=== PATIENT | female | born 1990 | race Two or more races ===

== ENCOUNTER 2017-01-18 11:59 | Inpatient (IN) | payer OTHER ==
[2017-01-18] MEDS: DEXTROSE 5%-LACTATED RINGERS 1,000 ML IV SCH ×2 (13:45→18:40)
[2017-01-18 13:48] VITALS: BMI 26.2
[2017-01-18] MEDS ORDERED: AMPICILLIN - 2 GM in SODIUM CHLORIDE 100 ML IVPB ONE (14:00)
[2017-01-18 15:27] LABS: BASOPHIL 0.4 % (0-2.0); EOSINOPHIL 0.3 % (0-4.5); MCH 30.7 pg (25.7-33.7); MEAN CELL VOLUME 85.5 fl (80-96); MEAN PLT VOLUME 10.6 fl (7.5-11.1); NEUTROPHILS 72.8 % (42.8-82.8); PLATELET COUNT 121 K/MM3 (134-434); RDW 12.9 % (11.6-15.6); WHITE BLOOD COUNT 8.9 K/mm3 (4.0-10.0)
[2017-01-18 15:43] LABS: ANION GAP 11 (8-16); CO2 22 mmol/L (21-32); CREATININE 0.5 mg/dL (0.55-1.02); GLUCOSE,RANDOM 123 mg/dL (74-106)
[2017-01-18 15:44] LABS: INR 1.03 (0.82-1.09); PROTHROMBIN TIME (PATIENT) 11.6 SEC (9.98-11.88)
[2017-01-18 15:47] LABS: ACTIVATED PTT 24.6 SECONDS (26.9-34.4)
[2017-01-18 15:56] LABS: HIV 1 & 2 AB NEGATIVE; HIV 1 AGp24 NEGATIVE
[2017-01-18] MEDS ORDERED: BUTORPHANOL TARTRATE 1 MG/ML VIAL IVPUSH PRN ×2 (16:05→17:06)
[2017-01-18] MEDS ORDERED: PROMETHAZINE HCL 25 MG/1 ML VIAL IVPUSH ONE (16:05)
--- NOTE | 2017-01-18 16:11 | PN ---
Progress Note (short form) - Note Progress Note: cx 5 cm, 100 vx -1 mi, fhr cat 1, irregular contraction , in labor, pitocin rba discussed , ,
[2017-01-18] MEDS ORDERED: OXYTOCIN 15 UNITS/ LR 250 ML 250 ML IVPB SCH (16:15)
[2017-01-18] MEDS: AMPICILLIN - 1 GM in SODIUM CHLORIDE 100 ML IVPB SCH ×2 (18:20→22:10)
--- NOTE | 2017-01-18 20:52 | PN ---
Progress Note (short form) - Note Progress Note: cx 7 cm 100 vx 0 mi, arom, small , scant clear flluid . fhr cat1, contraction q 3min
--- NOTE | 2017-01-18 20:58 | HP ---
Past Medical History - Primary Care Physician PCP:: Lan Flannery - Admission Chief Complaint: pregnacy 36.2 weeks , labor History of Present Illness: 26 yo f o 36.3 weeks, c/o pelvic pressure and pain . cx 4 cm 100 vx -1 mi , fhr cat 1, contraction q 3 to 4 min pain sacle 5 History Source: Patient Limitations to Obtaining History: No Limitations - Past Medical History ...: 2 ...Para: 0 ...Spon : 1 ...EDC by Sono: 02/12/17 Heme/Onc: Yes: Anemia - Past Surgical History Hx Myomectomy: No Hx Transabdominal Cerclage: No - Smoking History Smoking history: Never smoked Have you smoked in the past 12 months: No - Alcohol/Substance Use Hx Alcohol Use: No - Social History Usual Living Arrangement: Yes: With Spouse History of Recent Travel: No Home Medications - Allergies Allergies/Adverse Reactions: Allergies Allergy/AdvReac Type Severity Reaction Status Date / Time No Known Allergies Allergy Verified 01/18/17 12:51 - Home Medications Home Medications: Ambulatory Orders Aspirin [ASA -] 81 mg PO DAILY 01/18/17 Vitamins (Sjr) - 1 tab PO DAILY 01/18/17 Review of Systems - Review of Systems Constitutional: reports: No Symptoms Eyes: reports: No Symptoms HENT: reports: No Symptoms Neck: reports: No Symptoms Cardiovascular: reports: No Symptoms Respiratory: reports: No Symptoms Gastrointestinal: reports: Abdominal Pain Genitourinary: reports: No Symptoms Breasts: reports: No Symptoms Reported Musculoskeletal: reports: No Symptoms Integumentary: reports: No Symptoms Neurological: reports: No Symptoms Endocrine: reports: No Symptoms Hematology/Lymphatic: reports: No Symptoms Psychiatric: reports: No Symptoms Physical Exam - Maternity Vital Signs: Vital Signs Temperature 98.2 F 01/18/17 18:00 Pulse Rate 78 01/18/17 18:00 Respiratory Rate 18 01/18/17 18:00 Blood Pressure 106/51 01/18/17 18:00 O2 Sat by Pulse Oximetry (%) Constitutional: Yes: Well Nourished, No Distress, Calm Eyes: Yes: WNL, Conjunctiva Clear, EOM Intact HENT: Yes: WNL, Atraumatic, Normocephalic Neck: Yes: WNL, Supple, Trachea Midline Cardiovascular: Yes: WNL, Regular Rate and Rhythm Breast(s): Yes: WNL - Abdominal Exam/OB Fundal Height: 36 Number of Fetuses: Single Presentation: Vertex Contractions: Yes Regularity: Irregular Intensity: Mod/Strong Monitor Mode: External Heart Rate Location: [facility] Category: I Accelerations: Uniform Decelerations: None - Vaginal Exam/OB Vaginal Bleediing: Bloody Show Speculum Exam: No Dilatation (cm): 4 to 5 Effacement (%): 100 Amniotic Membrane Status: Intact Presentation: Vertex/Position Station: -2 - Physical Exam Musculoskeletal: Yes: WNL Extremities: Yes: WNL Edema: LLE: Trace, RLE: Trace Deep Tendon Reflex Grade: Normal +2 - Labs Lab Results: CBC, BMP 01/18/17 15:00 01/18/17 15:00 Hemorrhage Risk Assessment - Risk Factors Medium Risk Factors: Yes: None High Risk Factors: Yes: None Risk Score: 1 Risk Level: Medium Risk Problem List - Problems (1) with 36 completed weeks gestation Code(s): Z3A.36 - 36 WEEKS GESTATION OF (2) Labor established Code(s): GDV9084 - (3) Premature labor Code(s): O60.00 - LABOR WITHOUT DELIVERY, UNSPECIFIED TRIMESTER Qualifiers: labor trimester: third trimester Fetus number: single or unspecified fetus Assessment/Plan admit, heart monitoring, risks of prematurity discussed with patient and her , GBS not known , amp prophylaxis heart monitor
[2017-01-18] MEDS ORDERED: ELECTROLYTE-148 SOLN 1,000 ML IV SCH (21:00)
[2017-01-18] MEDS ORDERED: FENTANYL/BUPIVACAINE/NS/PF - PCEA - 50 ML DISP.SYRIN EP SCH (22:00)
--- NOTE | 2017-01-18 22:37 | PN ---
Progress Note (short form) - Note Progress Note: cx 9 cm, 100 0 station, vx mr, fhr cat 1, has epidural Problem List - Problems (1) with 36 completed weeks gestation Code(s): Z3A.36 - 36 WEEKS GESTATION OF (2) Labor established Code(s): [id number] - (3) Premature labor Code(s): O60.00 - LABOR WITHOUT DELIVERY, UNSPECIFIED TRIMESTER Qualifiers: labor trimester: third trimester Fetus number: single or unspecified fetus
[2017-01-19] MEDS: AMPICILLIN - 1 GM in SODIUM CHLORIDE 100 ML IVPB SCH (02:15)
[2017-01-19] MEDS: OXYTOCIN 20 UNITS in 0.9% NS 1,000 ML IV ONE ×2 (03:10→09:30)
[2017-01-19] MEDS ORDERED: BENZOCAINE 28 GM HEMORRHOIDAL OINTMENT TP PRN (03:27)
[2017-01-19] MEDS ORDERED: METHYLERGONOVINE MALEATE 0.2 MG/1 ML AMP IM PRN (03:27)
[2017-01-19] MEDS ORDERED: WITCH HAZEL 50% (TUCKS) 40 PAD/JAR PAD TP PRN (03:27)
[2017-01-19] MEDS ORDERED: oxyCODONE HCL 5 MG TABLET PO PRN (03:27)
[2017-01-19] MEDS ORDERED: BENZOCAINE 20% 57 GM BOTTLE TP PRN (03:27)
[2017-01-19] MEDS ORDERED: BISACODYL 10 MG SUPP.RECT RC PRN (03:27)
[2017-01-19] MEDS ORDERED: D5W-LR W/ 20 UNITS OXYTOCIN 1,000 ML IV SCH (03:30)
--- NOTE | 2017-01-19 03:30 | PN ---
Progress Note (short form) - Note Progress Note: 2 45 am, full 100 vx 3+ station, fhr cat 1, pushing with contraction Problem List - Problems (1) with 36 completed weeks gestation Code(s): Z3A.36 - 36 WEEKS GESTATION OF (2) Labor established Code(s): [id number] - (3) Premature labor Code(s): O60.00 - LABOR WITHOUT DELIVERY, UNSPECIFIED TRIMESTER Qualifiers: labor trimester: third trimester Fetus number: single or unspecified fetus
--- NOTE | 2017-01-19 03:35 | PN ---
Delivery - Delivery Vaginal Delivery: Spontaneous Type of Anesthesia: Epidural Episiotomy/Laceration: Periurethral Extnsion/lac (cx fully dilated , head on prinum . head deliverd , nasopharynx suctioned , ant and post shoulser with no difficulty , live baby boy 9/10 . placenta complete, rt paraurethral first degree laceration with one interupted suture of 2 o chromic, ebl 300 cc, no complication, DR Darnell balbuena attended delivery) Delivery, Single - [place] Feeding Plan Initial Plan: Exclusive throughout hospitalization
[2017-01-19 03:43] LABS: ARTERIAL BLOOD GAS BASE EXCESS -4.9 meq/l (-2-2); ARTERIAL BLOOD GAS HCO3 22.4 meq/L (22-26); ARTERIAL BLOOD GAS pH 7.26 (7.35-7.45)
[2017-01-19 03:46] LABS: PT. ON O2? NO
[2017-01-19 03:52] LABS: ARTERIAL BLD GAS O2 SATURATION 66.8 % (90-98.9); ARTERIAL BLOOD GAS PO2 34.9 mmHg (80-100)
[2017-01-19 03:55] LABS: VENOUS PH 7.37 (7.32-7.42)
[2017-01-19 03:56] LABS: VENOUS BLOOD GAS HCO3 22.1 meq/L (19-25)
[2017-01-19] MEDS: FERROUS SO4 325 MG TABLET (FP) PO SCH ×2 (09:23→21:15)
[2017-01-19] MEDS: IBUPROFEN 600 MG TABLET (FP) PO PRN (12:09)
[2017-01-19] MEDS: ACETAMINOPHEN 325 MG TABLET (FP) PO PRN (12:11)
[2017-01-20] MEDS: IBUPROFEN 600 MG TABLET (FP) PO PRN ×2 (02:07→21:47)
[2017-01-20] MEDS: ACETAMINOPHEN 325 MG TABLET (FP) PO PRN ×2 (02:07→21:47)
--- NOTE | 2017-01-20 07:56 | PN ---
Post Progress Note - Subjective Subjective: 26 yo Para 1 status post vaginal delivery seen and evaluated. Doing well, no complaints. Post Day: 1 Type of Delivery: Vital Signs: Vital Signs Temperature 97.7 F 01/19/17 22:00 Pulse Rate 68 01/19/17 22:00 Respiratory Rate 18 01/19/17 22:00 Blood Pressure 107/52 01/19/17 22:00 O2 Sat by Pulse Oximetry (%) 100 01/19/17 03:00 Breast Exam: Yes: Soft Uterus: Yes: Fundus Firm Abdomen/GI: Yes: Abdomen soft Lochia: Yes: Rubra Lochia, amount: Moderate Extremities: Yes: Calves non-tender Activity: Ambulating - Labs Labs: CBC WBC 8.9 K/mm3 (4.0-10.0) 01/18/17 15:00 RBC 3.87 M/mm3 (3.60-5.2) 01/18/17 15:00 Hgb 11.9 GM/dL (10.7-15.3) 01/18/17 15:00 Hct 33.1 % (32.4-45.2) 01/18/17 15:00 MCV 85.5 fl (80-96) 01/18/17 15:00 MCH 30.7 pg (25.7-33.7) 01/18/17 15:00 MCHC 36.0 g/dl (32.0-36.0) 01/18/17 15:00 RDW 12.9 % (11.6-15.6) 01/18/17 15:00 Plt Count 121 K/MM3 (134-434) L 01/18/17 15:00 MPV 10.6 fl (7.5-11.1) 01/18/17 15:00 Neutrophils % 72.8 % (42.8-82.8) 01/18/17 15:00 Lymphocytes % 22.5 % (8-40) 01/18/17 15:00 Monocytes % 4.0 % (3.8-10.2) 01/18/17 15:00 Eosinophils % 0.3 % (0-4.5) 01/18/17 15:00 Basophils % 0.4 % (0-2.0) 01/18/17 15:00 Problem List - Problems (1) Status post normal vaginal delivery Code(s): [id number] - Assessment/Plan Status post vaginal delivery Stable Continue routine care
[2017-01-20 08:43] LABS: BASOPHIL 0.3 % (0-2.0); EOSINOPHIL 0.8 % (0-4.5); MCH 29.9 pg (25.7-33.7); MCHC 35.2 g/dl (32.0-36.0); MEAN PLT VOLUME 9.4 fl (7.5-11.1); NEUTROPHILS 74.8 % (42.8-82.8); PLATELET COUNT 118 K/MM3 (134-434)
[2017-01-20] MEDS: FERROUS SO4 325 MG TABLET (FP) PO SCH ×2 (09:30→21:15)
[2017-01-20] MEDS ORDERED: DIPHTH,PERTUSS(ACELL),TET 0.5 ML DISP.SYRIN IM ONE (11:00)
[2017-01-20] MEDS ORDERED: FLU VACC QS2017-18 36MOS UP/PF 60 MCG/0.5 ML SYRINGE IM ONE (11:00)
[2017-01-20] MEDS ORDERED: SENNOSIDES/DOCUSATE COMBO (SENNA PLUS) TABLET (UD) PO PRN (22:00)
--- NOTE | 2017-01-21 06:06 | DS ---
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 Vital Signs: Vital Signs Temperature 98.1 F 01/20/17 22:00 Pulse Rate 69 01/20/17 22:00 Respiratory Rate 18 01/20/17 22:00 Blood Pressure 106/63 01/20/17 22:00 O2 Sat by Pulse Oximetry (%) 100 01/19/17 03:00 Constitutional: Yes: Well Nourished Eyes: Yes: Conjunctiva Clear HENT: Yes: Atraumatic Neck: Yes: Supple Cardiovascular: Yes: Regular Rate and Rhythm Respiratory: Yes: Regular Gastrointestinal: Yes: Normal Bowel Sounds External Genitalia: Yes: Normal Vaginal Exam: Yes: Normal Cervix: Yes: Normal Uterus: Yes: Firm ....Post : Yes: Uterus firm, Moderate lochia serosa Breast(s): Yes: WNL Neurological: Yes: Alert, Oriented ...Motor Strength: WNL Psychiatric: Yes: Alert, Oriented Labs: CBC, BMP 01/20/17 07:35 01/18/17 15:00 Delivery - Delivery Vaginal Delivery: Spontaneous Type of Anesthesia: Local, Epidural Episiotomy/Laceration: 1st degree EBL (cc): 400 Delivery, Single - Stages of Labor Date 1st Stage Initiatied: 01/18/17 Time 1st Stage Initiated: 19:00 Date 2nd Stage Initiated: 01/19/17 Time 2nd Stage Initiated: 02:45 Date of Delivery: 01/19/17 Time of Delivery: 03:05 Time Placenta Delivered: 03:10 - 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: Yes Name: Deborah Patrick Infant Gender: Male Weight: 5 lb 11 oz Position: Left, OA Total Hours ROM (Hrs/Mins): [id number] - 1 Minute Total Score: 9 5 Minutes Total Score: 10 - Feeding Plan Initial Plan: Exclusive throughout hospitalization Discharge Summary Reason For Visit: Labor Current Active Problems Labor established (Acute) with 36 completed weeks gestation (Acute) Premature labor (Acute) Status post normal vaginal delivery (Acute) Procedures: Principal: Normal spontaneous vaginal delivery Hospital Course: Routine care - Instructions Diet, Activity, Other Instructions: Regular diet No douching, no sexual intercourse x 6 weeks F/U in clinic in 6 weeks Referrals: Lan Flannery MD [Staff Physician] - Disposition: HOME - Home Medications Comprehensive Discharge Medication List: Ambulatory Orders Aspirin [ASA -] 81 mg PO DAILY 01/18/17 Vitamins (Sjr) - 1 tab PO DAILY 01/18/17
[2017-01-21 09:07] VITALS: BP 102/67; PULSE 102; TEMP 98.2
[2017-01-21] MEDS: FERROUS SO4 325 MG TABLET (FP) PO SCH (09:24)
== END 2017-01-21 18:10 | disposition home or self-care (01) | DRG 560 ==
LOC: JDEL 11:59 → JLDR 13:15 → J3W 01-19 04:58
PROVIDERS: ADMIT Obstetrics & Gynecology; ATTEND Obstetrics & Gynecology
PROC: 10E0XZZ Delivery of Products of Conception, External Approach (ICD-10-PCS; principal; 2017-01-19)
PROC: 0W8NXZZ Division of Female Perineum, External Approach (ICD-10-PCS; 2017-01-19)
PROC: 0HQ9XZZ Repair Perineum Skin, External Approach (ICD-10-PCS; 2017-01-19)
DX: O70.0 First degree perineal laceration during delivery (principal); O42.913 Preterm premature rupture of membranes, unspecified as to length of time between rupture and onset of labor, third trimester; Z3A.36 36 weeks gestation of pregnancy; Z37.0 Single live birth
CPT/HCPCS: 36415; 36600; 59025; 59409; 80048; 82803; 85025; 85610; 85730; 86593; 86850; 86900; 86901; 87389; 90686; 90715; G0008

== ENCOUNTER 2018-09-27 08:15 | Inpatient (IN) | payer OTHER ==
[2018-09-27] MEDS: ELECTROLYTE-148 SOLN 1,000 ML IV SCH (08:30)
--- NOTE | 2018-09-27 09:15 | HP ---
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: No: Alzheimer's, CVA, Dementia, Migraine, Multiple Sclerosis, Peripheral Neuropathy, Parkinson's, Seizure, Syncope, TIA, Vertigo, Other Cardiovascular: No: AFIB, Aneurysm, Aortic Insufficiency, Aortic Stenosis, CAD, CHF, Deep Vein Thrombosis, HTN, Hyperlipdemia, ND, Mitral Insufficiency, Mitral Stenosis, Murmur, Pulmonary Hypertension, Other Pulmonary: No: Asthma, Bronchitis, Cancer, COPD, O2 Dependent, Pneumonia, Previously Intubated, Pulmonary Embolus, Pulmonary Fibrosis, Sleep Apnea, Other Gastrointestinal: No: Ascites, Cancer, Constipation, Crohn's Disease, Diverticulitis, Diverticulosis, Esophageal Varices, Gastritis, GERD, GI Bleed, Hemorrhoids, Hiatal Hernia, Inflamatory Bowel Disease, Irritable Bowel Disease, Pancreatitis, Peptic Ulcer Disease, Ulcerative Colitis, Other Hepatobiliary: No: Cirrhosis, Cholelithiasis, Cholecystitis, Choledocholithiasis , Hepatitis A, Hepatitis B, Hepatitis C, Other Renal/: No: Renal Failure, Renal Inusuff, BPH, Cancer, Hematuria, Hemodialysis , Neurogenic Bladder, Renal Calculi, UTI, Other Reproductive: No: Ectopic , Endometriosis, Fibroids, PID, Polycystic Ovary Syndrome, Postmenopausal, Other ...: 3 ...Para: 1 ...Term: 1 ...: 0 ...Spon : 1 Heme/Onc: Yes: Anemia (none), Thrombocytopenia (gestational) Infectious Disease: No: AIDS, C-Diff, Herpes Zoster, HIV, MRSA, STD's, Tuberculosis, VREF, Other Psych: No: Addictions, Anxiety, Bipolar, Depression, Panic, Psychosis, Schizophrenia, Other Musculoskeletal: No: Bursitis, Chronic low back pain, Hemiparesis, Hemiplegia, Osteoarthritis, Paraplegia, Other Rheumatology: No: Fibromyalgia, Gout, Lupus, Rheumatoid Arthritis, Sarcoidosis, Vasculitis, Other ENT: No: Allergic Rhinitis, Sinusitis, Other Endocrine: No: Manan's Disease, [place]'s Disease, Diabetes Insipidus, Diabetes Mellitus, Hyperparathyroidism, Hyperthyroidism, Hypothyroidism, Osteopenia, SIADH, Other Dermatology: No: Basal Cell, Cellulitis, Eczema, Melanoma, Psoriasis, Squamous Cell, Other - Past Surgical History Past Surgical History: Yes: None Hx Myomectomy: No Hx Transabdominal Cerclage: No - Smoking History Smoking history: Never smoked Have you smoked in the past 12 months: No - Alcohol/Substance Use Hx Alcohol Use: No - Social History History of Recent Travel: No Home Medications - Allergies Allergies/Adverse Reactions: Allergies Allergy/AdvReac Type Severity Reaction Status Date / Time No Known Allergies Allergy Verified 08/29/18 21:47 - Home Medications Home Medications: Ambulatory Orders Ferrous Sulfate [Feosol] 325 mg PO DAILY 06/22/18 Vitamins (Sjr) - 1 tab PO DAILY 06/22/18 Progesterone, Micronized [Crinone] 1.125 gm VG 08/29/18 Family Disease History - Family Disease History Family History: Unremarkable Review of Systems - Review of Systems Constitutional: reports: No Symptoms Eyes: reports: No Symptoms HENT: reports: No Symptoms, Ocular Prosthesis Cardiovascular: reports: No Symptoms Respiratory: reports: No Symptoms Gastrointestinal: reports: No Symptoms Genitourinary: reports: No Symptoms Breasts: reports: No Symptoms Reported Musculoskeletal: reports: No Symptoms Integumentary: reports: No Symptoms, Erythema (error) Endocrine: reports: No Symptoms Hematology/Lymphatic: reports: No Symptoms Psychiatric: reports: No Symptoms Physical Exam - Maternity Vital Signs: as reported by nursing Constitutional: Yes: No Distress Eyes: Yes: WNL HENT: Yes: Atraumatic, Normocephalic Neck: Yes: Supple Cardiovascular: Yes: Regular Rate and Rhythm Lungs: Other (deferred) Breast(s): Yes: Other (deferred) - Abdominal Exam/OB Number of Fetuses: Single Presentation: Vertex (sutures palpated) Contractions: Yes Regularity: Regular Intensity: Moderate Monitor Mode: External Category: I Accelerations: Uniform Decelerations: None - Vaginal Exam/OB Vaginal Bleediing: No Speculum Exam: No Dilatation (cm): 9.5 Effacement (%): 100 Amniotic Membrane Status: Intact Presentation: Vertex/Position Station: -3 - Physical Exam Musculoskeletal: Yes: WNL Extremities: Yes: WNL Edema: Yes Edema: LLE: Trace, RLE: Trace Integumentary: Yes: WNL ...Motor Strength: WNL Psychiatric: Yes: Alert, Oriented - Labs Lab Results: pending Hemorrhage Risk Assessment - Risk Factors Medium Risk Factors: Yes: None High Risk Factors: Yes: None Risk Score: 1 Risk Level: Medium Risk Imaging - Results Ultrasound: Report Reviewed Problem List - Problems (1) Labor established Code(s): [id number] - Assessment/Plan 28 y/o @ 39.0wks, active labor, FHT cat I, requesting epidural, significant for short cervix and mild gestational thrombocytopenia -Labs -Admit -Re-evaluate -Epidural at attending discretion
[2018-09-27 09:29] LABS: INR 0.97 (0.83-1.09); PROTHROMBIN TIME (PATIENT) 11.4 SEC (9.7-13.0)
[2018-09-27 09:31] LABS: ACTIVATED PTT 27.3 SECONDS (25.2-36.5)
[2018-09-27] MEDS ORDERED: OXYTOCIN 20 UNITS in 0.9% NS 20 UNIT/1,000 ML INFUS.BAG IV ONE (09:32)
[2018-09-27 09:36] LABS: BLOOD UREA NITROGEN 6.7 mg/dL (7-18); CALCIUM 8.5 mg/dL (8.5-10.1); CREATININE 0.4 mg/dL (0.55-1.3); POTASSIUM 3.5 mmol/L (3.5-5.1)
[2018-09-27 09:43] VITALS: BMI 29.0
[2018-09-27 09:44] LABS: BASO % 0.3 % (0-2.0); EOS % 1.3 % (0-4.5); HEMATOCRIT 35.3 % (32.4-45.2); HEMOGLOBIN 12.5 GM/dL (10.7-15.3); LYMPH % 26.8 % (8-40); MCH 30.8 pg (25.7-33.7); MCHC 35.3 g/dl (32.0-36.0); MEAN CELL VOLUME 87.4 fl (80-96); MEAN PLT VOLUME 9.7 fl (7.5-11.1); MONO % 5.9 % (3.8-10.2); NEUT % 65.7 % (42.8-82.8); PLATELET COUNT 133 K/MM3 (134-434); RBC 4.04 M/mm3 (3.60-5.2); RDW 13.8 % (11.6-15.6); WHITE BLOOD COUNT 9.1 K/mm3 (4.0-10.0)
[2018-09-27] MEDS ORDERED: FENTANYL/BUPIVACAINE/NS/PF - PCEA - 50 ML DISP.SYRIN EP ONE (10:19)
--- NOTE | 2018-09-27 10:29 | PN ---
Progress Note, Labor Vaginal Exam #1 Labor Exam Date: 09/27/18 Heart Rate (range): reactive Dilatation: 9.5 Effacement (%): 100 Amniotic Membrane Status: Ruptured (AROM, clear) Presentation: Vertex/Position (asynclitic) Station: -2 Remarks: 28 y/o @ 39.0wks, patient requesting epidural, FHT cat I, stable maternal condition, official sono 09/26/18 reviewed and EFW 10% -epidural is ok -expectant management -re-evaluate as required
[2018-09-27] MEDS ORDERED: OXYTOCIN 30 UNITS in 0.9% NS 30 UNIT/500 ML INFUS.BAG IVPB ONE (11:37)
[2018-09-27] MEDS ORDERED: LIDOCAINE HCL 1% PRESERVATIVE FREE - 30ML VIAL ONE (12:00)
[2018-09-27] MEDS: OXYTOCIN 20 UNITS in 0.9% NS 20 UNIT/1,000 ML INFUS.BAG IV SCH (12:00)
[2018-09-27] MEDS ORDERED: BENZOCAINE 28 GM HEMORRHOIDAL OINTMENT TP PRN (12:24)
[2018-09-27] MEDS ORDERED: BENZOCAINE 20% 57 GM BOTTLE TP PRN (12:24)
[2018-09-27] MEDS ORDERED: BISACODYL 10 MG SUPP.RECT RC PRN (12:24)
[2018-09-27] MEDS ORDERED: WITCH HAZEL 50% (TUCKS) 40 PAD/JAR PAD TP PRN (12:24)
--- NOTE | 2018-09-27 12:33 | PN ---
Delivery - Delivery Vaginal Delivery: Spontaneous Type of Anesthesia: Local, Epidural Episiotomy/Laceration: 1st degree (right labial majora superficial laceration repaired with interrupted 3.0 polysorb sutures in standard fashion, excellent reapproximation and hemostasis noted) EBL (cc): 250 Delivery, Single - Stages of Labor Placenta: Yes: Spontaneous (intact, 3VC) - Condition of Infant Gender: Female Position: Right, OA - [place] Feeding Plan Initial Plan: Elected not to breastfeed exclusively throughout hospitalization Benefits of Exclusively reinforced: Yes Remarks - Remarks Remarks: 's head delivered with maternal expulsive efforts, OA and restituted to ULISES. Loose nuchal cord x 1 noted and removed after completed delivery of infant. Shoulders delivered without complications followed by the rest of the body. Cord clamped after delay and cut. Placenta delivered spontaneously and intact, 3VC. Exam revealed the previously mentioned laceration and repaired without difficulty. Fundus is firm and excellent hemostasis noted. Sponge/ instrument count correct x 2 and confirmed by nurse.
[2018-09-27] MEDS ORDERED: FENTANYL/BUPIVACAINE/NS/PF - PCEA - 50 ML DISP.SYRIN EP SCH (12:45)
[2018-09-27] MEDS ORDERED: ACETAMINOPHEN 325 MG TABLET (FP) ONE (12:59)
[2018-09-27] MEDS ORDERED: IBUPROFEN 600 MG TABLET (FP) PO ONE (12:59)
[2018-09-27] MEDS: ACETAMINOPHEN 325 MG TABLET (FP) PO PRN (13:04)
[2018-09-27] MEDS: IBUPROFEN 600 MG TABLET (FP) PO PRN (13:04)
[2018-09-28 07:51] LABS: BASO % 0.2 % (0-2.0); EOS % 1.1 % (0-4.5); HEMATOCRIT 34.2 % (32.4-45.2); HEMOGLOBIN 12.1 GM/dL (10.7-15.3); LYMPH % 25.9 % (8-40); MCH 30.9 pg (25.7-33.7); MCHC 35.4 g/dl (32.0-36.0); MEAN CELL VOLUME 87.4 fl (80-96); MEAN PLT VOLUME 10.2 fl (7.5-11.1); MONO % 5.2 % (3.8-10.2); NEUT % 67.6 % (42.8-82.8); RBC 3.91 M/mm3 (3.60-5.2); RDW 13.7 % (11.6-15.6); WHITE BLOOD COUNT 11.8 K/mm3 (4.0-10.0)
[2018-09-28 08:32] LABS: PLATELET COUNT 133 K/MM3 (134-434)
--- NOTE | 2018-09-28 09:59 | PN ---
Post Progress Note - Subjective Subjective: Ambulating, tolerating PO, lochia decreased, breast feeding, voiding, passing flatus Post Day: 1 Type of Delivery: Vital Signs: Vital Signs Temperature 97.7 F 09/28/18 06:00 Pulse Rate 64 09/28/18 06:00 Respiratory Rate 18 09/28/18 06:00 Blood Pressure 105/61 09/28/18 06:00 O2 Sat by Pulse Oximetry (%) 100 09/27/18 13:30 Breast Exam: Yes: Other (deferred) Uterus: Yes: Fundus Firm Abdomen/GI: Yes: Abdomen soft Lochia, amount: Small Extremities: Yes: Calves non-tender Perineum: Yes: Laceration (laceration healing) Activity: Ambulating - Labs Labs: CBC WBC 11.8 K/mm3 (4.0-10.0) H 09/28/18 06:41 RBC 3.91 M/mm3 (3.60-5.2) 09/28/18 06:41 Hgb 12.1 GM/dL (10.7-15.3) 09/28/18 06:41 Hct 34.2 % (32.4-45.2) 09/28/18 06:41 MCV 87.4 fl (80-96) 09/28/18 06:41 MCH 30.9 pg (25.7-33.7) 09/28/18 06:41 MCHC 35.4 g/dl (32.0-36.0) 09/28/18 06:41 RDW 13.7 % (11.6-15.6) 09/28/18 06:41 Plt Count 133 K/MM3 (134-434) L 09/28/18 06:41 MPV 10.2 fl (7.5-11.1) 09/28/18 06:41 Absolute Neuts (auto) 7.9 K/mm3 (1.5-8.0) 09/28/18 06:41 Neutrophils % 67.6 % (42.8-82.8) 09/28/18 06:41 Lymphocytes % 25.9 % (8-40) 09/28/18 06:41 Monocytes % 5.2 % (3.8-10.2) 09/28/18 06:41 Eosinophils % 1.1 % (0-4.5) 09/28/18 06:41 Basophils % 0.2 % (0-2.0) 09/28/18 06:41 Nucleated RBC % 0 % (0-0) 09/28/18 06:41 Problem List - Problems (1) Labor established Code(s): [id number] - (2) Status post normal vaginal delivery Code(s): [id number] - Assessment/Plan 28 y/o P2 on PPD # 1 in stable condition -Continue PP care -Anticipate D/C tomorrow
[2018-09-28] MEDS: IBUPROFEN 600 MG TABLET (FP) PO PRN (18:09)
[2018-09-28] MEDS: ACETAMINOPHEN 325 MG TABLET (FP) PO PRN (18:10)
[2018-09-28] MEDS: ELECTROLYTE-148 SOLN 1,000 ML IV SCH (19:14)
[2018-09-28] MEDS: OXYTOCIN 20 UNITS in 0.9% NS 20 UNIT/1,000 ML INFUS.BAG IV SCH (19:15)
[2018-09-28] MEDS ORDERED: SENNOSIDES/DOCUSATE COMBO (SENNA PLUS) TABLET (UD) PO PRN (22:00)
[2018-09-29 09:09] VITALS: BP 97/51; PULSE 78; TEMP 98
--- NOTE | 2018-09-29 09:31 | DS ---
Physical Examination Vital Signs: Vital Signs Temperature 98.0 F 09/29/18 09:07 Pulse Rate 78 09/29/18 09:07 Respiratory Rate 20 09/29/18 09:07 Blood Pressure 97/51 L 09/29/18 09:07 O2 Sat by Pulse Oximetry (%) 100 09/27/18 13:30 Findings/Remarks: patient ambulating, voiding, breast feeding, tolerating PO, lochia decreased. PP precautions discussed Constitutional: Yes: No Distress Eyes: Yes: WNL HENT: Yes: Atraumatic, Normocephalic Neck: Yes: Supple Cardiovascular: Yes: Regular Rate and Rhythm Respiratory: Yes: Regular Gastrointestinal: Yes: Soft ...Rectal Exam: Yes: Deferred Renal/: Yes: Other (incision intact) Breast(s): Yes: Other (deferred) Musculoskeletal: Yes: WNL Extremities: Yes: WNL Edema: Yes Edema: LLE: Trace, RLE: Trace Integumentary: Yes: WNL Wound/Incision: Yes: Clean/Dry Neurological: Yes: Alert, Oriented ...Motor Strength: WNL Psychiatric: Yes: Alert, Oriented Labs: CBC, BMP 09/28/18 06:41 09/27/18 08:50 Discharge Summary Reason For Visit: LABOR ADMISSION Procedures: Principal: Hospital Course: Uncomplicated vaginal delivery and recovery Condition: Stable - Instructions Diet, Activity, Other Instructions: Regular diet. Call MD with any problems or concerns. Follow up in 6-8 for visit Referrals: Ken Bartholomew MD [Staff Physician] - Disposition: HOME - Home Medications Comprehensive Discharge Medication List: Ambulatory Orders Ferrous Sulfate [Feosol] 325 mg PO DAILY 06/22/18 Vitamins (Sjr) - 1 tab PO DAILY 06/22/18
[2018-09-29] MEDS: ACETAMINOPHEN 325 MG TABLET (FP) PO PRN (10:19)
[2018-09-29] MEDS: IBUPROFEN 600 MG TABLET (FP) PO PRN (10:19)
== END 2018-09-29 15:00 | disposition home or self-care (01) | DRG 560 ==
LOC: JLDR 08:15 → J3W 13:45
PROVIDERS: ADMIT Student in an Organized Health Care Education/Training Program; ATTEND Student in an Organized Health Care Education/Training Program
PROC: 10E0XZZ Delivery of Products of Conception, External Approach (ICD-10-PCS; principal; 2018-09-27)
PROC: 0W8NXZZ Division of Female Perineum, External Approach (ICD-10-PCS; 2018-09-27)
PROC: 0HQ9XZZ Repair Perineum Skin, External Approach (ICD-10-PCS; 2018-09-27)
DX: O70.0 First degree perineal laceration during delivery (principal); O99.113 Other diseases of the blood and blood-forming organs and certain disorders involving the immune mechanism complicating pregnancy, third trimester; O26.873 Cervical shortening, third trimester; Z3A.39 39 weeks gestation of pregnancy; Z37.0 Single live birth
CPT/HCPCS: 36415; 59409; 80048; 85025; 85610; 85730; 86593; 86850; 86900; 86901

== ENCOUNTER 2019-03-26 14:39 | Emergency (ER) | payer OTHER ==
[2019-03-26 15:22] VITALS: TEMP 98; BMI 28.0
--- NOTE | 2019-03-26 15:23 | PDOC ---
Rapid Medical Evaluation Time Seen by Provider: 03/26/19 15:19 Medical Evaluation: Allergies Allergy/AdvReac Type Severity Reaction Status Date / Time No Known Allergies Allergy Verified 09/27/18 09:24 03/26/19 15:20 I have performed a brief in-person evaluation of this patient. The patient presents with a chief complaint of:L CP w/ deep inspiration on and off x 3-4 months Pertinent physical exam findings:stable, clear chest/lungs I have ordered the following:ekg/cxr The patient will proceed to the ED for further evaluation. Discharge Disposition - Diagnosis Chest pain Qualifiers: Chest pain type: chest pain on breathing Qualified Code(s): R07.1 - Chest pain on breathing; R07.81 - Pleurodynia - Referrals - Patient Instructions - Post Discharge Activity
--- NOTE | 2019-03-26 17:08 | PDOC ---
History of Present Illness - General Chief Complaint: Chest Pain Stated Complaint: PAIN UNDER LT ARM Time Seen by Provider: 03/26/19 15:19 History Source: Patient Exam Limitations: No Limitations Past History - Travel Traveled outside of the country in the last 30 days: No Close contact w/someone who was outside of country & ill: No - Past Medical History Allergies/Adverse Reactions: Allergies Allergy/AdvReac Type Severity Reaction Status Date / Time No Known Allergies Allergy Verified 03/26/19 15:22 Home Medications: Ambulatory Orders NK [No Known Home Medication] 03/26/19 Asthma: No Cancer: No Cardiac Disorders: No COPD: No Diabetes: No HTN: No Seizures: No Thyroid Disease: No - Psycho Social/Smoking Cessation Hx Smoking History: Never smoked Have you smoked in the past 12 months: No Hx Alcohol Use: No Drug/Substance Use Hx: No Hx Substance Use Treatment: No Review of Systems - Review of Systems Able to Perform ROS?: Yes Comments:: 03/26/19 17:29 CONSTITUTIONAL: Absent: fever, chills, diaphoresis, generalized weakness, malaise, loss of appetite CARDIOVASCULAR: Absent: chest pain, loss of consciousness, palpitations, irregular heart rate, peripheral edema RESPIRATORY: Absent: cough, shortness of breath, dyspnea with exertion, orthopnea, wheezing, stridor, hemoptysis GASTROINTESTINAL: Absent: abdominal pain, abdominal distension, nausea, vomiting, diarrhea, constipation, melena, hematochezia MUSCULOSKELETAL: Present: Left-sided chest wall pain. Absent: myalgia, arthralgia, joint swelling SKIN: Absent: rash, itching, pallor NEUROLOGIC: Absent: headache, focal weakness or paresthesias, dizziness, unsteady gait, seizure, mental status changes, bladder or bowel incontinence PSYCHIATRIC: Absent: anxiety, depression, suicidal or homicidal ideation, hallucinations. Is the patient limited Slovenian proficient: No *Physical Exam - Vital Signs Last Vital Signs Temp Pulse Resp BP Pulse Ox 98 F 90 18 140/63 100 03/26/19 15:19 03/26/19 15:19 03/26/19 15:19 03/26/19 15:19 03/26/19 16:19 - Physical Exam 03/26/19 17:30 GENERAL: Well developed, well nourished. Awake and alert. No acute distress. HEENT: Normocephalic, atraumatic. PERRLA, EOMI. No conjunctival pallor. Sclera are non- icteric. Moist mucous membranes. NECK: Supple. Full ROM. CARDIOVASCULAR: Regular rate and rhythm. No murmurs, rubs, or gallops. Distal pulses are 2+ and symmetric. PULMONARY: No evidence of respiratory distress. Lungs clear to auscultation bilaterally. No wheezing, rales or rhonchi. ABDOMINAL: Soft. Non-tender. Non-distended. No rebound or guarding. No organomegaly. Normoactive bowel sounds. MUSCULOSKELETAL Tenderness to palpation of the left chest wall along ribs 4 5 and 6. Normal range of motion at all joints. No bony deformities or tenderness. No CVA tenderness. EXTREMITIES: No cyanosis. No clubbing. No edema. No calf tenderness. SKIN: Warm and dry. Normal capillary refill. No rashes. No jaundice. NEUROLOGICAL: Alert, awake, appropriate. Cranial nerves 2-12 intact. No deficits to light touch and temperature in face, upper extremities and lower extremities. No motor deficits in the in face, upper extremities and lower extremities. Normoreflexic in the upper and lower extremities. Normal speech. Toes are down- going bilaterally. Gait is normal without ataxia. PSYCHIATRIC: Cooperative. Good eye contact. Appropriate mood and affect. Medical Decision Making - Medical Decision Making 03/26/19 17:31 The patient is a 29-year-old female with no past medical history who presents to the ER today for 2 days of worsening left-sided chest wall pain. She states she has had the pain for approximately 2 to 3 months. She states that got worse for last 2 days. She notes that she has a 6-month-old and she only holds the child on the left side while she is feeding the child her bottle. She states that the pain is worse with movement and deep breaths. She denies recent travel, estrogen use, history of blood clots, palpitations, edema, shortness of breath, difficulty breathing, nausea, vomiting and diarrhea. A/P: Atypical chest pain/chondral chondritis. On exam chest pain is reproducible along the chest wall along ribs 4-6. Lungs are clear to auscultation bilaterally, heart rate is regular rate and rhythm with no murmurs rubs or gallops. Defer troponin as pain has been for 2-3 months; unlikely ACS Pt PERC's out. EKG: Rate 79 bpm, normal sinus rhythm with sinus arrhythmia. Normal intervals and axis. No acute ST-T wave changes. Overall normal EKG. Chest x-ray wet read by myself shows no acute pathology. Likely muscle strain given lifting of children. We will discharge home with primary care follow-up and return precautions. I discussed the physical exam findings, ancillary test results and final diagnoses with the patient. I answered all of the patient's questions. The patient was satisfied with the care received and felt comfortable with the discharge plan and treatment plan. The Patient agrees to follow up with the primary care physician/specialist within 24-72 hours. Return precautions were given. Discharge - Discharge Information Problems reviewed: Yes Clinical Impression/Diagnosis: Atypical chest pain, Costochondritis Condition: Stable Disposition: HOME - Admission No - Follow up/Referral Referrals: Monster Fragoso MD [Staff Physician] - - Patient Discharge Instructions Patient Printed Discharge Instructions: DI for Atypical Chest Pain, DI for Costochondritis Additional Instructions: You were evaluated for your chest pain today. It is most likely pain due to muscle strain. Your EKG and chest x-ray were normal. You may take Tylenol 650 mg every 6 hours as needed for pain. Please try holding your child in your right arm to help with the pain on the left side of your chest. Follow-up with primary care this week. A referral has been given to you. Return to the ER for worsening chest pain, dizziness, lightheadedness, palpitations or if you have any changes in your symptoms. - Post Discharge Activity Work/Back to School Note: Back to Work
[2019-03-26 17:45] VITALS: BP 126/64; PULSE 80
--- NOTE | 2019-03-27 11:51 | EKG ---
Test Reason : Blood Pressure : / mmHG Vent. Rate : 079 BPM Atrial Rate : 079 BPM P-R Int : 118 ms QRS Dur : 084 ms QT Int : 356 ms P-R-T Axes : 062 061 036 degrees QTc Int : 408 ms NORMAL SINUS RHYTHM WITH SINUS ARRHYTHMIA POSSIBLE LEFT ATRIAL ENLARGEMENT BORDERLINE ECG NO PREVIOUS ECGS AVAILABLE Confirmed by MATTHIAS DRISCOLL MD ([id number]) on 03/27/2019 11:51:36 AM Referred By: Confirmed By:MATTHIAS DRISCOLL MD
== END 2019-03-26 17:45 | disposition home or self-care (01) ==
LOC: JER 14:39
DX: M94.0 Chondrocostal junction syndrome [Tietze] (principal)
CPT/HCPCS: 71046-TC-FY; 93005; 93010; 99284-25